=== PATIENT | male | born 2000 | race Caucasian/White ===

== ENCOUNTER 2020-12-26 19:49 | Emergency (ER) | payer BC ==
[~2020-12-26] VITALS: Ht 172.7 cm; Wt 63.6 kg
[2020-12-26] MEDS ORDERED: MOTRIN 800800 MG/TAB PO (21:13)
[2020-12-26 22:17] VITALS: BP 117/69; PULSE 73
[2020-12-27] MEDS ORDERED: NORCO 325 MG-51 TAB PO (17:01)
== END 2020-12-26 22:12 | disposition home or self-care (01) ==
LOC: COL.ER 19:49
DX: S40.011A Contusion of right shoulder, initial encounter (principal); F17.290 Nicotine dependence, other tobacco product, uncomplicated; W19.XXXA Unspecified fall, initial encounter; Y93.61 Activity, american tackle football
CPT/HCPCS: J1885